=== PATIENT | female | born 1955 | race Caucasian/White ===

== ENCOUNTER 2018-11-04 12:09 | Emergency (ER) | payer BC ==
--- NOTE | 2018-11-04 12:23 | PDOC ---
History of Present Illness - General Chief Complaint: Blood Pressure Problem Stated Complaint: HTN Time Seen by Provider: 11/04/18 12:11 - History of Present Illness Initial Comments: 11/04/18 13:10 63-year-old female with a history of hypertension, hyperlipidemia presents the to emergency department from urgent care with elevated blood pressure reading. Patient reports this morning she woke up, states she was "not feeling well"and checked her blood pressure and found it to be 210/100 at 11 AM. At that point she presented to urgent care for evaluation, who sent the patient here to the emergency department. Patient reports she has been experiencing 1-2 seconds of sternal chest discomfort that's triggered only by pressing her two shoulders together anteriorly and by pushing directly on her sternum. She reports this discomfort has been intermittently for 5 days. The discomfort does not occur at rest or with exertion, only with the described shoulder movements or palpation. She saw her primary care physician Dr. Gonzalez 2 days ago, who started her on chlorthalidone 12.5 mg for 1 week, followed by 25 mg after that. She states her blood pressure was high during the visit as well. Patient reports that she has not started the medication because she has been scared to take it at home. She denies any other symptoms of headache, dizziness, focal weakness or numbness, shortness of breath, abdominal pain, nausea, vomiting, diarrhea, lower extremity edema, urinary symptoms. Denies recent travel, immobility, calf tenderness, cancer hx, or clot history. Past History - Past Medical History Allergies/Adverse Reactions: Allergies Allergy/AdvReac Type Severity Reaction Status Date / Time No Known Allergies Allergy Verified 11/04/18 12:11 Home Medications: Ambulatory Orders Chlorthalidone 12.5 mg PO DAILY 11/04/18 Lisinopril 10 mg PO DAILY 11/04/18 Loratadine [Claritin] 10 mg PO DAILY 11/04/18 [place]-3 Fatty Acids/Fish Oil [Fish Oil 1,000 mg Capsule] 1 each PO DAILY Simvastatin 20 mg PO DAILY 11/04/18 COPD: No - Surgical History Cholecystectomy: Yes - Suicide/Smoking/Psychosocial Hx Smoking History: Never smoked Have you smoked in the past 12 months: No Information on smoking cessation initiated: No Hx Alcohol Use: No Drug/Substance Use Hx: No Review of Systems - Review of Systems Comments:: 11/04/18 13:21 GENERAL/CONSTITUTIONAL: No fever or chills. No weakness. HEAD, EYES, EARS, NOSE AND THROAT: No change in vision. No ear pain or discharge. No sore throat. GASTROINTESTINAL: No nausea, vomiting, diarrhea or constipation. GENITOURINARY: No dysuria, frequency, or change in urination. CARDIOVASCULAR: No shortness of breath. +chest discomfort RESPIRATORY: No cough, wheezing, or hemoptysis. MUSCULOSKELETAL: No joint or muscle swelling or pain. No neck or back pain. SKIN: No rash NEUROLOGIC: No headache, vertigo, loss of consciousness, or change in strength/ sensation. ENDOCRINE: No increased thirst. No abnormal weight change. HEMATOLOGIC/LYMPHATIC: No anemia, easy bleeding, or history of blood clots. ALLERGIC/IMMUNOLOGIC: No hives or skin allergy. *Physical Exam - Vital Signs Last Vital Signs Temp Pulse Resp BP Pulse Ox 98.1 F 103 H 20 196/99 H 100 11/04/18 12:10 11/04/18 12:10 11/04/18 12:10 11/04/18 12:10 11/04/18 12:10 - Physical Exam Comments: 11/04/18 13:21 GENERAL: Awake, alert, and fully oriented, in no acute distress. Very well appearing EYES: PERRLA, EOMI, sclera anicteric, conjunctiva clear ENT: Oropharynx clear without exudates. Moist mucosa NECK: Normal ROM, supple, no lymphadenopathy, JVD, or masses LUNGS: Breath sounds equal, clear to auscultation bilaterally. No wheezes, and no crackles HEART: Regular rate and rhythm, normal S1 and S2, no murmurs, rubs or gallops. + ttp to distal sternum ABDOMEN: Soft, nontender, normoactive bowel sounds. No guarding, no rebound. No masses EXTREMITIES: Normal range of motion, no edema. No clubbing or cyanosis. No cords, erythema, or tenderness NEUROLOGICAL: Normal speech, cranial nerves intact, negative pronator drift, 5/ 5 strength in all 4 extremities, normal sensation to light touch in all 4 extremities, normal cerebellar exam, normal gait, normal reflexes and tone SKIN: Warm, Dry, normal turgor, no rashes or lesions noted. Heart Score/ECG Review #1 11/04/18 13:27 EKG read and int by me: NSR, rate 88. Normal axis and intervals. No RAFAEL or TWI. ED Treatment Course - LABORATORY CBC & Chemistry Diagram: 11/04/18 13:20 11/04/18 13:20 Medical Decision Making - Medical Decision Making 11/04/18 13:27 63yo F, hx HTN on lisinopril for 10 years presents to the ED with elevated BP and 5 days of intermittent chest discomfort. BP elevated here on arrival to 196/99 Pt has known elevated BP at home, was prescribed "water pill" but did not take it because she was scared Called pt's pharmacy, she was confirmed to have started chlorthalidone 25mg, 1/ 2 pill daily for 7 days followed by 1 pill thereafter DDx includes hypertensive urgency vs emergency EKG non ischemic Chest discomfort atypical and likely MSK given comes on only with certain positions or palpation. Plan for labs including trop, CXR, UA to eval for end organ damage No need for CTH as pt has no headache, visual sxs, and is neuro intact Will also prescribe chlorthalidone 12.5mg in ED and reassess 11/04/18 14:27 Labs wnl UA with trace blood - pt reports has been present before and f/u with Dr. Gonzalez for it CXR clear BP improved on chlorthalidone Pt asymptomatic, pt clinically stable Plan for DC with close PMD f/u I discussed the physical exam findings, ancillary test results and final diagnoses with the patient. I answered all of the patient's questions. The patient was satisfied with the care received and felt comfortable with the discharge plan and treatment plan. The patient will call their primary care physician within 24 hours to arrange follow-up and will return to the Emergency Department with any new, persistent or worsening symptoms. *DC/Admit/Observation/Transfer Diagnosis at time of Disposition: Chest discomfort, HTN (hypertension), Non compliance w medication regimen - Discharge Dispostion Disposition: HOME Condition at time of disposition: Stable Decision to Admit order: No - Referrals - Patient Instructions Printed Discharge Instructions: DI for High Blood Pressure Additional Instructions: Follow up with Dr. Gonzalez in 1-2 days. We saw a tiny amount of blood in your urine today. Follow up with Dr. Gonzalez for this issue as he may need to repeat the test and refer you to a specialist (urology). Take the medications as prescribed, including the new water pill chlorthalidone as it will help control your blood pressure better Return to the emergency department if you have any new, worsening, or concerning symptoms. - Post Discharge Activity - Attestations Physician Attestion: 11/04/18 14:35 I, Dr. Joleen Middleton MD, attest that this document has been prepared under my direction and personally reviewed by me in its entirety. I further attest, that it accurately reflects all work, treatment, procedures and medical decision -making performed by me.
[2018-11-04 12:35] VITALS: TEMP 98.1; BMI 25.2
[2018-11-04] MEDS ORDERED: CHLORTHALIDONE 25 MG TABLET PO ONE (13:08)
[2018-11-04 13:42] LABS: BASO % 0.2 % (0-2.0); EOS % 0.5 % (0-4.5); HEMATOCRIT 42.7 % (32.4-45.2); HEMOGLOBIN 14.4 GM/dl (10.7-15.3); LYMPH % 19.1 % (8-40); MCH 29.7 pg (25.7-33.7); MCHC 33.6 g/dl (32.0-36.0); MEAN CELL VOLUME 88.2 fl (80-96); MEAN PLT VOLUME 7.9 fl (7.5-11.1); MONO % 4.8 % (3.8-10.2); NEUT % 75.4 % (42.8-82.8); PLATELET COUNT 287 K/MM3 (134-434); RBC 4.84 M/mm3 (3.60-5.2); RDW 12.6 % (11.6-15.6)
[2018-11-04 13:47] LABS: ALBUMIN 4.6 g/dl (3.4-5.0); BILIRUBIN,TOTAL 0.8 mg/dl (0.2-1); CALCIUM 9.6 mg/dl (8.5-10); CREATININE 0.6 mg/dl (0.55-1.3); POTASSIUM 4.1 mmol/L (3.5-5.1); TOT PROT 7.9 g/dl (6.4-8.2)
[2018-11-04 14:00] LABS: EPITHELIAL CELLS RARE /hpf
[2018-11-04 14:25] VITALS: BP 133/80; PULSE 94
--- NOTE | 2018-11-05 14:12 | EKG ---
Test Reason : Blood Pressure : / mmHG Vent. Rate : 088 BPM Atrial Rate : 088 BPM P-R Int : 112 ms QRS Dur : 084 ms QT Int : 386 ms P-R-T Axes : 066 072 062 degrees QTc Int : 467 ms NORMAL SINUS RHYTHM NO PREVIOUS ECGS AVAILABLE Confirmed by JOSE RUBIO MD ([id number]) on 11/05/2018 2:11:28 PM Referred By: Billy WHITMAN Confirmed By:JOSE RUBIO MD
== END 2018-11-04 14:46 | disposition home or self-care (01) ==
LOC: FER 12:09
DX: I10 Essential (primary) hypertension (principal); R07.89 Other chest pain; E78.5 Hyperlipidemia, unspecified; Z91.14 Patient's other noncompliance with medication regimen
CPT/HCPCS: 36415; 71045-TC-FY; 80053; 81003; 81015; 84484; 85025; 93005; 99282-25